=== PATIENT | female | born 1990 | race Caucasian/White ===

== ENCOUNTER 2019-08-01 09:24 | Emergency (ER) | payer BC, MEDICAID ==
[2019-08-01] MEDS ORDERED: Ketorolac 60 MG/2 ML SDV IM ONE (10:00)
[2019-08-01] MEDS ORDERED: Baclofen 10 MG Tab PO ONE (10:00)
[2019-08-01] MEDS ORDERED: Acetaminophen/oxyCODONE 325-5 MG Tab PO ONE (10:01)
--- NOTE | 2019-08-01 10:07 | EDM.PDOC ---
ED HPI GENERAL MEDICAL PROBLEM - General Chief Complaint: Back Pain or Injury Stated Complaint: LOW BACK PAIN Time Seen by Provider: 08/01/19 10:03 Source of Information: Reports: Patient History Limitations: Reports: No Limitations - History of Present Illness INITIAL COMMENTS - FREE TEXT/NARRATIVE: pt arrived with pain in her lower back radiating more down thw rt leg. She has had some chronic problems. She was out in the snow with her son but did not do significant shoveling. Onset: Today, Sudden, Other ( Pt has had some chronic problems. 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: Musculoskeletal History: Reports: Back Pain, Chronic Endocrine/Metabolic History: Reports: Obesity/BMI 30+ - Past Surgical History Head Surgeries/Procedures: Reports: None HEENT Surgical History: Reports: Adenoidectomy, Tonsillectomy Endocrine Surgical History: Reports: None Musculoskeletal Surgical History: Reports: None Dermatological Surgical History: Reports: None Social & Family History - Tobacco Use Smoking Status *Q: Never Smoker Second Hand Smoke Exposure: No - Caffeine Use Caffeine Use: Reports: Coffee - Recreational Drug Use Recreational Drug Use: No ED ROS GENERAL - Review of Systems Review Of Systems: See Below Constitutional: Reports: No Symptoms HEENT: Reports: No Symptoms Respiratory: Reports: No Symptoms Cardiovascular: Reports: No Symptoms Endocrine: Reports: No Symptoms GI/Abdominal: Reports: No Symptoms : Reports: No Symptoms Musculoskeletal: Reports: Back Pain, Other (pt developed acute back pain in the very low lumbar. She has radicular pain going down the rt leg. ) ED EXAM,LOWER BACK PAIN/INJURY - Physical Exam Exam: See Below Text/Narrative:: pt arrived with pain in her lower back and going down the rt leg. She states she has had some chronic problems. Exam Limited By: No Limitations General Appearance: Alert, Anxious, Moderate Distress Ears: Normal TMs Nose: Normal Inspection Throat/Mouth: Normal Inspection Head: Atraumatic Neck: Normal Inspection Respiratory/Chest: No Respiratory Distress Cardiovascular: Regular Rate, Rhythm GI/Abdominal: Soft, Non-Tender (Female) Exam: Deferred Rectal (Female) Exam: Deferred Back Exam: Other (pt is tender to palpate in the very low lumbar area. She has shooting pain down the rt leg. ) Course - Vital Signs Last Recorded V/S: Last Vital Signs Temp 36.1 C 08/01/19 09:43 Pulse 65 08/01/19 09:43 Resp 16 08/01/19 09:43 BP 139/85 08/01/19 09:43 Pulse Ox 95 08/01/19 09:43 - Orders/Labs/Meds Orders: Active Orders 24 hr Category Date Time Status Acetaminophen/oxyCODONE [Percocet 325-5 MG] Med 08/01/19 10:01 Once 1 tab PO ONETIME ONE Baclofen [Lioresal] Med 08/01/19 10:00 Once 10 mg PO ONETIME ONE Ketorolac [Toradol] Med 08/01/19 10:00 Once 60 mg IM ONETIME ONE Medication Orders Baclofen (Lioresal) 10 mg PO ONETIME ONE Stop: 08/01/19 10:01 Last Admin: 08/01/19 10:06 Dose: 10 mg Ketorolac Tromethamine (Toradol) 60 mg IM ONETIME ONE Stop: 08/01/19 10:01 Last Admin: 08/01/19 10:07 Dose: 60 mg Oxycodone/Acetaminophen (Percocet 325-5 Mg) 1 tab PO ONETIME ONE Stop: 08/01/19 10:02 Last Admin: 08/01/19 10:06 Dose: 1 tab Meds: Medications Generic Name Dose Route Start Last Admin Trade Name Freq PRN Reason Stop Dose Admin Baclofen 10 mg 08/01/19 10:00 08/01/19 10:06 Lioresal PO 08/01/19 10:01 10 mg ONETIME ONE Administration Ketorolac Tromethamine 60 mg 08/01/19 10:00 08/01/19 10:07 Toradol IM 08/01/19 10:01 60 mg ONETIME ONE Administration Oxycodone/Acetaminophen 1 tab 08/01/19 10:01 08/01/19 10:06 Percocet 325-5 Mg PO 08/01/19 10:02 1 tab ONETIME ONE Administration - Re-Assessments/Exams Free Text/Narrative Re-Assessment/Exam: 08/01/19 11:40 pt has severe pain and it is radiating down the rt leg. She had lumbar spine seris done which shows no acute findings. Departure - Departure Time of Disposition: 11:41 Disposition: Home, Self-Care 01 Condition: Fair Clinical Impression: Lumbar back pain with radiculopathy affecting right lower extremity - Discharge Information Referrals: Treva Moyer, RN [Primary Care Provider] - Forms: ED Department Discharge Care Plan Goals: ice and heat to the lower back, baclofen 10mg bid to relax muscles, motrin 600mg tid, for severe pain norco 5/325 q6h prn for pain #8. follow up with Treva Moyer if pain is persistent. - My Orders Last 24 Hours: My Active Orders 08/01/19 10:00 Baclofen [Lioresal] 10 mg PO ONETIME ONE Ketorolac [Toradol] 60 mg IM ONETIME ONE 08/01/19 10:01 Acetaminophen/oxyCODONE [Percocet 325-5 MG] 1 tab PO ONETIME ONE - Assessment/Plan Last 24 Hours: My Active Orders 08/01/19 10:00 Baclofen [Lioresal] 10 mg PO ONETIME ONE Ketorolac [Toradol] 60 mg IM ONETIME ONE 08/01/19 10:01 Acetaminophen/oxyCODONE [Percocet 325-5 MG] 1 tab PO ONETIME ONE
--- NOTE | 2019-08-01 11:29 | CRLCR ---
INDICATION: Low back pain with right lower extremity radiculopathy TECHNIQUE: Lumbar spine 3 view. COMPARISON: None FINDINGS: Bones: Alignment is normal. No fractures or significant bone lesions. Joints: Disc spaces and facets are unremarkable. Soft tissues: Unremarkable. IMPRESSION: Unremarkable lumbar spine. Dictated by Sawyer Curtis MD @ Aug 01 2019 11:26AM Signed by Dr. Sawyer Curtis @ Aug 01 2019 11:28AM
== END 2019-08-01 11:49 | disposition home or self-care (01) ==
LOC: JP.ED 09:24
DX: M54.16 Radiculopathy, lumbar region (principal); E66.9 Obesity, unspecified; Z68.42 Body mass index [BMI] 45.0-49.9, adult
CPT/HCPCS: 72100; 96372; 99283; A9270; J1885

== ENCOUNTER 2021-01-27 15:03 | Emergency (ER) | payer BC, MEDICAID ==
--- NOTE | 2021-01-27 16:55 | EDM.PDOC ---
ED HPI GENERAL MEDICAL PROBLEM - General Chief Complaint: Respiratory Problem Stated Complaint: COVID POSITIVE/TROUBLE BREATHING Time Seen by Provider: 01/27/21 15:40 Source of Information: Reports: Patient History Limitations: Reports: No Limitations - History of Present Illness INITIAL COMMENTS - FREE TEXT/NARRATIVE: 30-year-old female, tested positive for Covid 9 days ago because her had symptoms and was positive so it was recommended she be tested. She had no symptoms until a day or 2 later. Over the past 2 to 3 days she has had increased cough, fatigue, and intermittent shortness of breath. She is very stable, talking in full sentences and has a normal O2 saturation. Onset: Gradual Duration: Day(s): (8 days of symptoms) Associated Symptoms: Reports: Fever/Chills, Malaise, Shortness of Breath, Weakness, Other (Fatigue). 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: Musculoskeletal History: Reports: Back Pain, Chronic Endocrine/Metabolic History: Reports: Obesity/BMI 30+ - Infectious Disease History Infectious Disease History: Reports: None - Past Surgical History Head Surgeries/Procedures: Reports: None HEENT Surgical History: Reports: Adenoidectomy, Tonsillectomy Social & Family History - Tobacco Use Tobacco Use Status *Q: Never Tobacco User - Caffeine Use Caffeine Use: Reports: Coffee - Recreational Drug Use Recreational Drug Use: No ED ROS GENERAL - Review of Systems Review Of Systems: See Below Constitutional: Reports: Fever, Chills, Malaise, Weakness Respiratory: Reports: Shortness of Breath, Cough. Denies: Sputum Cardiovascular: Denies: Chest Pain GI/Abdominal: Denies: Nausea, Vomiting Skin: Reports: No Symptoms. Denies: Rash Neurological: Reports: Weakness. Denies: Headache Psychiatric: Reports: No Symptoms ED EXAM, GENERAL - Physical Exam Exam: See Below Exam Limited By: No Limitations General Appearance: Alert, No Apparent Distress Throat/Mouth: Normal Inspection Head: Atraumatic Respiratory/Chest: No Respiratory Distress, Lungs Clear, Other (Frequent dry cough is present) Cardiovascular: No: Regular Rate, Rhythm Neurological: Alert, Oriented Psychiatric: Normal Affect, Normal Mood Skin Exam: Warm, Dry Course - Vital Signs Last Recorded V/S: Last Vital Signs Temp 97.7 F 01/27/21 15:39 Pulse 94 01/27/21 15:39 Resp 18 01/27/21 15:39 BP 173/101 H 01/27/21 15:39 Pulse Ox 95 01/27/21 15:39 - Re-Assessments/Exams Free Text/Narrative Re-Assessment/Exam: 01/27/21 16:54 Patient does meet the criteria for BAM therapy because of her BMI and timing of symptoms. She is willing to receive this, so will be set up for BAM therapy tomorrow morning. Departure - Departure Time of Disposition: 17:59 Disposition: Home, Self-Care 01 Clinical Impression: COVID-19 - Discharge Information Instructions: COVID-19 Referrals: PCP,None [Primary Care Provider] - Forms: ED Department Discharge Care Plan Goals: Return tomorrow for your IV therapy as discussed. Stay hydrated, return sooner if difficulty breathing or other concerns. Do not worry about fever, it is part of the illness. Sepsis Event Note (ED) - Evaluation Sepsis Screening Result: No Definite Risk
== END 2021-01-27 18:00 | disposition home or self-care (01) ==
LOC: JP.ED 15:03
DX: U07.1 COVID-19 (principal); E66.9 Obesity, unspecified; Z68.44 Body mass index [BMI] 60.0-69.9, adult
CPT/HCPCS: 99284

== ENCOUNTER 2023-07-17 22:30 | Emergency (ER) | payer BC, MEDICAID ==
[2023-07-17 23:53] LABS: BASOPHILS ABSOLUTE AUTO 0.03 K/uL (0.00-0.10); BASOPHILS PERCENT AUTO 0.3 % (0.1-1.3); EOSINOPHILS ABSOLUTE AUTO 0.44 K/uL (0.00-0.40); EOSINOPHILS PERCENT AUTO 4.6 % (0.0-5.4); HEMATOCRIT 39.8 % (34.3-46.0); HEMOGLOBIN 13.2 g/dL (11.2-15.5); IMMATURE GRAN PERCENT AUTO 0.2 % (0.0-0.7); LYMPHOCYTES ABSOLUTE AUTO 2.74 K/uL (0.8-3.3); LYMPHOCYTES PERCENT AUTO 28.4 % (11.4-47.7); MEAN CORPUSCULAR HEMOGLOBIN 28.8 pg (31.6-35.5); MEAN CORPUSCULAR HGB CONC 33.2 g/dL (31.6-35.5); MEAN CORPUSCULAR VOLUME 86.9 fL (81.4-99.0); MONOCYTES ABSOLUTE AUTO 0.94 K/uL (0.20-0.90); MONOCYTES PERCENT AUTO 9.7 % (3.3-12.6); NEUTROPHILS ABSOLUTE AUTO 5.48 K/uL (1.0-7.6); NEUTROPHILS PERCENT AUTO 56.8 % (40.0-78.1); PLATELET COUNT,PLT 298 K/uL (130-375); RED BLOOD CELL COUNT 4.58 M/uL (3.77-5.24); WHITE BLOOD CELL COUNT,WBC 9.7 K/uL (3.2-11.0)
[2023-07-17 23:56] LABS: IMMATURE GRAN ABSOLUTE AUTO 0.02 K/uL (0.00-0.23)
[2023-07-18 00:17] LABS: CALCIUM 8.1 mg/dL (8.5-10.1); CREATININE 0.9 mg/dL (0.6-1.0); EST CRCL DRUG DOSING (CG) 85.65 mL/min; MAGNESIUM 1.9 mg/dL (1.8-2.4); POTASSIUM,K 3.8 mmol/L (3.6-5.2); TROPONIN I HIGH SENSITIVITY 5.3 pg/mL (<=60.3)
[2023-07-18 00:18] LABS: ANION GAP 12.8 mmol/L (5.0-14.0)
[2023-07-18] MEDS ORDERED: Calcium Carbonate 500 MG Tab.Chew PO ONE (00:21)
== END 2023-07-18 00:46 | disposition home or self-care (01) ==
LOC: JP.ED 22:30
DX: I49.1 Atrial premature depolarization (principal); E16.2 Hypoglycemia, unspecified; E66.9 Obesity, unspecified; Z86.16 Personal history of COVID-19; Z68.45 Body mass index [BMI] 70 or greater, adult
CPT/HCPCS: 36415; 80048; 83735; 84484; 85025; 93005; 93010; 99283; 99285; A9270-GY

== ENCOUNTER 2024-04-22 18:27 | Emergency (ER) | payer BC ==
[2024-04-22 20:14] LABS: BASOPHILS ABSOLUTE AUTO 0.03 K/uL (0.00-0.10); BASOPHILS PERCENT AUTO 0.3 % (0.1-1.3); EOSINOPHILS ABSOLUTE AUTO 0.37 K/uL (0.00-0.40); EOSINOPHILS PERCENT AUTO 4.1 % (0.0-5.4); HEMATOCRIT 41.4 % (34.3-46.0); HEMOGLOBIN 13.9 g/dL (11.2-15.5); IMMATURE GRAN PERCENT AUTO 0.2 % (0.0-0.7); LYMPHOCYTES ABSOLUTE AUTO 2.25 K/uL (0.8-3.3); LYMPHOCYTES PERCENT AUTO 24.9 % (11.4-47.7); MEAN CORPUSCULAR HEMOGLOBIN 28.5 pg (31.6-35.5); MEAN CORPUSCULAR HGB CONC 33.6 g/dL (31.6-35.5); MONOCYTES PERCENT AUTO 8.8 % (3.3-12.6); NEUTROPHILS ABSOLUTE AUTO 5.58 K/uL (1.0-7.6); NEUTROPHILS PERCENT AUTO 61.7 % (40.0-78.1); PLATELET COUNT,PLT 275 K/uL (130-375); RED BLOOD CELL COUNT 4.87 M/uL (3.77-5.24); WHITE BLOOD CELL COUNT,WBC 9.1 K/uL (3.2-11.0)
[2024-04-22 20:18] LABS: IMMATURE GRAN ABSOLUTE AUTO 0.02 K/uL (0.00-0.23)
[2024-04-22 20:38] LABS: A/G RATIO 0.7 (1.2-2.2); ALANINE AMINOTRANSFERASE,ALT 27 U/L (12-78); ALBUMIN 2.9 g/dL (3.4-5.0); ALKALINE PHOSPHATASE 66 U/L (46-116); ANION GAP 10.9 mmol/L (5.0-14.0); ASPARTATE AMNIOTRANSFERASE,AST 20 U/L (15-37); BILIRUBIN TOTAL 0.6 mg/dL (0.2-1.0); BLOOD UREA NITROGEN,BUN 12 mg/dL (7-18); CALCIUM 8.9 mg/dL (8.5-10.1); CARBON DIOXIDE,CO2 26 mmol/L (21-32); CHLORIDE,CL 103 mmol/L (100-108); CREATININE 0.9 mg/dL (0.6-1.0); EST CRCL DRUG DOSING (CG) 81.67 mL/min; ESTIMATED GFR 86 mL/min (>60); GLUCOSE RANDOM 100 mg/dL (74-106); POTASSIUM,K 3.9 mmol/L (3.6-5.2); PROTEIN TOTAL,TP 7.1 g/dL (6.4-8.2); SODIUM,NA 136 mmol/L (140-148); TROPONIN I HIGH SENSITIVITY < 4.0 pg/mL (<=60.3)
== END 2024-04-22 21:42 | disposition home or self-care (01) ==
LOC: JP.ED 18:27
DX: R07.89 Other chest pain (principal); F41.9 Anxiety disorder, unspecified; J45.909 Unspecified asthma, uncomplicated; E66.9 Obesity, unspecified; Z86.16 Personal history of COVID-19; Z79.899 Other long term (current) drug therapy; Z68.45 Body mass index [BMI] 70 or greater, adult
CPT/HCPCS: 36415; 71046; 71046-26; 80053; 84484; 85025; 85379; 93005; 99285; U0002

== ENCOUNTER 2025-05-06 11:01 | Emergency (ER) | payer BC, OTHER ==
[2025-05-06] MEDS: Ketorolac 30 MG/ML SDV IVPUSH ONE (12:30)
[2025-05-06] MEDS: Ondansetron 4 MG/2 ML SDV IVPUSH ONE (12:31)
[2025-05-06 12:33] LABS: BASOPHILS PERCENT AUTO 0.2 % (0.1-1.3); EOSINOPHILS ABSOLUTE AUTO 0.27 K/uL (0.00-0.40); EOSINOPHILS PERCENT AUTO 2.8 % (0.0-5.4); IMMATURE GRAN ABSOLUTE AUTO 0.04 K/uL (0.00-0.23); IMMATURE GRAN PERCENT AUTO 0.4 % (0.0-0.7); LYMPHOCYTES ABSOLUTE AUTO 1.51 K/uL (0.8-3.3); LYMPHOCYTES PERCENT AUTO 15.4 % (11.4-47.7); MONOCYTES ABSOLUTE AUTO 0.84 K/uL (0.20-0.90); MONOCYTES PERCENT AUTO 8.6 % (3.3-12.6); NEUTROPHILS ABSOLUTE AUTO 7.13 K/uL (1.0-7.6); NEUTROPHILS PERCENT AUTO 72.6 % (40.0-78.1); PLATELET COUNT,PLT 269 K/uL (130-375); RED BLOOD CELL COUNT 4.50 M/uL (3.77-5.24); WHITE BLOOD CELL COUNT,WBC 9.8 K/uL (3.2-11.0)
[2025-05-06 12:37] LABS: BASOPHILS ABSOLUTE AUTO 0.02 K/uL (0.00-0.10)
[2025-05-06 12:51] LABS: INR 1.0
[2025-05-06 13:06] LABS: A/G RATIO 0.6 (1.2-2.2); ALANINE AMINOTRANSFERASE,ALT 165 U/L (12-78); ASPARTATE AMNIOTRANSFERASE,AST 159 U/L (15-37); BILIRUBIN TOTAL 1.3 mg/dL (0.2-1.0); BLOOD UREA NITROGEN,BUN 14 mg/dL (7-18); CARBON DIOXIDE,CO2 30 mmol/L (21-32); CHLORIDE,CL 103 mmol/L (100-108); CREATININE 0.9 mg/dL (0.6-1.0); EST CRCL DRUG DOSING (CG) 84.03 mL/min; ESTIMATED GFR 85 mL/min (>60); GLUCOSE RANDOM 97 mg/dL (74-106); POTASSIUM,K 4.2 mmol/L (3.6-5.2); PRO B-TYPE NATRIUR PEPT,BNPPRO 190 pg/mL (5-125); PROTEIN TOTAL,TP 6.9 g/dL (6.4-8.2); SODIUM,NA 138 mmol/L (140-148)
[2025-05-06 14:22] LABS: APPEARANCE,URINE TURBID (CLEAR); GLUCOSE,URINE NEGATIVE (NEGATIVE); OCCULT BLOOD,URINE NEGATIVE (NEGATIVE)
[2025-05-06 14:28] LABS: SQUAMOUS EPITHELIAL CELLS,UR FEW /HPF
[2025-05-06 14:29] LABS: UROTHELIAL CELLS,URINE NOT SEEN /HPF
[2025-05-06] MEDS: Sodium Chloride 0.9% 10 ML Syringe FLUSH ONE (14:39)
[2025-05-06] MEDS: Iopamidol 755 Mg/ML 100 ML Bottle IV ONE (14:39)
== END 2025-05-06 16:46 | disposition home or self-care (01) ==
LOC: JP.ED 11:01
DX: R10.84 Generalized abdominal pain (principal)
CPT/HCPCS: 36415; 71275; 74177; 80053; 81001; 83605; 83690; 83880; 84703; 85025; 85610; 87086; 96361; 96374; 96375; 99284; J1885; J2405; J7030; Q9967